=== PATIENT | female | born 1985 | race Two or more races ===

== ENCOUNTER → 2016-12-20 | Outpatient (CLI) | payer OTHER ==
[~2016-12-20] MED LIST: LEVO25TA53 PO; OMEP20CA16 PO
--- NOTE | 2016-12-20 14:19 | RADRPT ---
PROCEDURE: XR right knee. CLINICAL INDICATION: Knee pain TECHNIQUE: AP weightbearing, PA weightbearing, lateral weightbearing and sunrise views are availab le for review. COMPARISON: None available FINDINGS: There is a small suprapatellar joint effusion. The osseous structures are normal in mineralization, architecture and alignment. No fractures are i dentified. No osseous lesions are identified. The joints are unremarkable. The soft tissues are u nremarkable. IMPRESSION: Small suprapatellar joint effusion Otherwise unremarkable examination RPTAT: [facility] .Homar Figueredo MD, MD Date Time Electronically viewed and signed by .Homar Figueredo MD, on 12/20/2016 14:18 .B/
== END | disposition home or self-care (01) ==
LOC: HKI 10:20
PROVIDERS: ATTEND Orthopaedic Surgery
DX: M25.561 Pain in right knee (principal); M22.41 Chondromalacia patellae, right knee
CPT/HCPCS: 73564; Z7500; G0463